=== PATIENT | female | born 1940 | race Caucasian/White ===

== ENCOUNTER 2016-03-07 18:14 | Emergency (ER) | payer MEDICARE, OTHER ==
[2016-03-07] MEDS ORDERED: NS 1,000 ML IV ONE (18:37)
--- NOTE | 2016-03-07 18:37 | EDPRACDOC ---
- General Information Chief Complaint: Flu-Like Symptoms Stated Complaint: COUGH/WEAKNESS Time Seen by Provider: 03/07/16 18:31 Home Medications: Home Medications Citalopram (anti-depressant) [Celexa] 40 mg PO .QPM 09/23/12 Enalapril Maleate [Vasotec] 10 mg PO .QPM 02/01/14 Azithromycin [Zithromax] 0 mg PO DAILY #6 tablet 03/07/16 Tussionex [Tussionex Oral Suspension] 5 ml PO BID PRN #120 ml 03/07/16 Warfarin Sodium [Coumadin] 6 mg PO .QPM 03/07/16 Allergies/Adverse Reactions: Allergies Allergy/AdvReac Type Severity Reaction Status Date / Time enoxaparin sodium Allergy Unknown Unknown/See Verified 03/07/16 18:43 [From Lovenox] Comments Heparin Analogues Allergy Unknown Unknown/See Verified 03/07/16 18:43 [Heparin Agents] Comments iodine [Iodine] Allergy Unknown Unknown/See Verified 03/07/16 18:43 Comments Iodinated Contrast Media - Allergy See Verified 03/07/16 18:43 IV Dye Comments - History of Present Illness Onset: THIS MORNING HPI: PT STATES SUDDEN ONSET OF CHILLS, NON-PROD COUGH, NAUSEA, "DRY HEAVES", HEADACHE , CHEST PAIN, STATES SHE FEELS LIKE SHE IS "IN A BARRELL", PT STATES SYMPTOMS BEGAN THIS MORNING, NO MEDS TAKEN FOR SAME. Shortness of Breath: Mild Relevant History of: Reports: None Cough: Reports: Non-productive Rhinorrhea: Reports: Clear Fever Severity/Quality: Reports: subjective Ear Symptoms: Reports: None Recently treated infections: Denies: Otitis media, Pneumonia, URI Associated Signs & Symptoms: Reports: Cough, Fever, Headache, Nasal Symptoms, Nausea, Diarrhea, Myalgia. Denies: Vomiting, Rash, Pain with head movement, AMS Oral Intake: Decreased Urinary Output: Normal ED Past Medical History - History Reviewed Yes Nurses notes reviewed and agree except as marked - Patient Medical History Cardiac History: Reports: Hypertension, Cardiac Catheterization, Hypercholesterolemia, Pacemaker (was removed in 2005) Respiratory History: Reports: Pulmonary Embolism. Denies: Pneumonia GI/ History: Reports: Diverticulosis. Denies: Urinary Tract Infection Musculoskeletal History: Reports: Arthritis Psychological History: Reports: Depression, Anxiety. Denies: Substance Use Disorder Systemic History: Reports: Anemia Surgical History: Reports: Cholecystectomy, Cardiac Catheterization, Hernia Surgery, Tonsillectomy/Adnoidectomy, Other (Gastric stapling, IVC filter placement) - Family Medical History Reports: Hypertension, Diabetes, Cancer (Mother), Stroke (Mother), Cardiac Disorders - Social Medical History Smoking Status: Never smoker Social History: Denies: Substance Use Disorder ETOH: None Substance Abuse: None EDM Review of Systems - Review of Systems Constitutional: Chills, Fever, Fatigue, Weakness Eyes: negative: Blurred Vision, Double Vision Ears: negative: Drainage Throat: negative: Pain Nose: Congestion, Discharge Respiratory: Cough, Shortness of Breath, Wheezing Cardiovascular: Chest Pain. negative: Palpitations Gastrointestinal: Diarrhea, Nausea. negative: Pain, Vomiting Genitourinary: negative: Dysuria, Frequency Neurological: Headache. negative: Dizziness, Numbness Musculoskeletal: No Symptoms Reported Integumentary: No Symptoms Reported - Physical Exam Constitutional: Alert (Awake), No apparent distress Oriented to: Time, Person, Place Last recorded Vital Signs: Oxygen Pulse Oxygen Saturation O2 Device Oxygen Flow Rate Fraction of Inspired Oxygen ( FIO2) - HEENT Head: Normal ( normocephalic) Eye Exam: Normal (PERRL, EOMI, Sclera white) Oropharynx: Normal (Pharynx:Moist without exudate,Gums-no swelling) Tympanic Membrane: Normal ENT EAC: Normal TMJ: Normal Nose: No Symptoms Reported (septum midline) Neck: Normal (FROM, trachea at midline) - Respiratory/Cardiovascular Respiratory: Normal - CTA (BBS clear to auscultation without adventitious sounds ) Cardiovascular: Normal (RRR without murmur, gallop or rub) - GI Auscultation: Normal (NABS) Palpation: Normal (Soft,No rebound or guarding, non distended) Tenderness: Non tender Lange's Sign: Negative - Musculoskeletal Back: Normal (Non-Tender) Extremities: Normal (Normal tone, Pulses 2+ No cyanosis or edema, FROM) - Integumentary Skin: Normal, Warm, Dry Lymphatics: Normal (no adenopathy) - Neurologic Memory Impaired: Normal Motor Function: Normal (Normal tone, Pulses 2+ No cyanosis or edema, FROM) Cranial Nerve: Normal (CN II-X11 intact sensation, strength 5/5) Cerebellar: Normal Mood Description: Normal Perception: Normal - Differential Diagnosis Bronchitis, Influenza A B, Pneumonia, Sinusitis, URI - Re-evaluation Re-evaluation 1 Re-evaluation Time: 20:50 (WAS FEELING BETTER, BUT NOW STARTING TO COUGH AGAIN) Re-evaluation 2 Re-evaluation Time: 21:37 (BETTER, AMBULATED TO BATHROOM WITHOUT DIFFICULTY) - Results 03/07/16 19:45 03/07/16 19:45 03/07/16 20:50 Laboratory Results - last 24 hr 03/07/16 03/07/16 03/07/16 19:45 19:45 19:45 WBC 7.9 RBC 4.23 Hgb 12.6 Hct 37.8 MCV 89 MCH 29.9 MCHC 33.5 RDW 14.6 H Plt Count 233 MPV 8.2 Neut % (Auto) 82.8 H Lymph % (Auto) 5.5 L [place] % (Auto) 10.6 H Eos % (Auto) 0.1 Baso % (Auto) 1.0 Absolute Neuts (auto) 6.48 Absolute Lymphs (auto) 0.40 L PT 16.1 H INR 1.6 APTT 21.7 L Sodium 136 L Potassium 4.6 Chloride 104 Carbon Dioxide 25 Anion Gap 12 BUN 14 Creatinine 0.90 Estimated GFR (MDRD) > 60 Glucose 99 Calculated Osmolality 263 L Calcium 8.5 Corrected Calcium 8.9 Total Bilirubin 0.5 AST 24 ALT 36 Alkaline Phosphatase 82 Troponin I < 0.01 [id number] Pept 731 Total Protein 7.0 Albumin 3.6 Lipase 65 - EKG EKG #1 EKG Time: 18:42 -: Yes EKG interpreted by me Rate: bpm: 69 [place]: Normal Rhythm: NSR Block: None Hypertrophy: None ST: Nonsp Comparison: 04/06/11 (NO CHANGE) - Diagnostic Imaging CXR Image interpreted by: Radiologist CHEST 2 VIEW COMPARISON: 02/01/2014 FINDINGS: Borderline heart size with normal pulmonary vascularity. No focal airspace disease or consolidation in the lungs. No blunting of costophrenic angles. No pneumothorax. Degenerative changes in the spine and shoulders. Surgical clips in the upper abdomen. IMPRESSION: No active cardiopulmonary disease. Decision Time to Discharge: 21:37 - Departure Disposition: Home Condition: Stable Final Diagnosis: Acute bronchitis Qualifiers: Bronchitis organism: unspecified organism Qualified Code(s): J20.9 - Acute bronchitis, unspecified Instructions: Acute Bronchitis (ED) Education/Counseling Given To: Patient Education/Counseling Given Regarding: Diagnosis, Treatment, Prognosis, Follow Up Referrals: Dane Nogueira MD [Primary Care Provider] - One Week Prescriptions: New Azithromycin [Zithromax] 0 mg PO DAILY #6 tablet Tussionex [Tussionex Oral Suspension] 5 ml PO BID PRN #120 ml PRN Reason: Cough No Action Citalopram (anti-depressant) [Celexa] 40 mg PO .QPM Enalapril Maleate [Vasotec] 10 mg PO .QPM Warfarin Sodium [Coumadin] 6 mg PO .QPM Additional Instructions: REST, DRINK PLENTY OF FLUIDS, USE TYLENOL OR MOTRIN NEEDED FOR PAIN OR FEVER , RETURN TO THE ED FOR ANY WORSENING SYMPTOMS OR CONCERNS.
[2016-03-07 18:43] VITALS: BMI 39.9
--- NOTE | 2016-03-07 19:03 | DIRPT ---
CLINICAL DATA: Shortness of breath. Sudden onset chills, cough, nausea, headache, chest pain. Symptoms began this morning. EXAM: CHEST 2 VIEW COMPARISON: 02/01/2014 FINDINGS: Borderline heart size with normal pulmonary vascularity. No focal airspace disease or consolidation in the lungs. No blunting of costophrenic angles. No pneumothorax. Degenerative changes in the spine and shoulders. Surgical clips in the upper abdomen. IMPRESSION: No active cardiopulmonary disease. Electronically Signed By: Merritt Kelly M.D. On: 03/07/2016 19:01
[2016-03-07] MEDS ORDERED: ACETAMINOPHEN 325 MG/TAB TABLET PO ONE (19:26)
[2016-03-07 19:51] LABS: AUTOMATED EOSINOPHIL 0.1 % (0-5); AUTOMATED LYMPH 5.5 % (17-44); AUTOMATED MONOCYTE 10.6 % (3-10); AUTOMATED NEUTROPHIL 82.8 % (45-76); MPV 8.2 fL (7.4-10.4)
[2016-03-07 20:03] LABS: BLOOD UREA NITROGEN 14 MG/DL (7-17); CALC CORRECTED 8.9 MG/DL (8.4-10.2); CALCIUM 8.5 MG/DL (8.4-10.2); CALCULATED OSMOLALITY 263 MOs/Kg (270-290); CHLORIDE 104 mEq/L (98-107); GLUCOSE 99 MG/DL (70-99); SODIUM LEVEL 136 mEq/L (137-146)
[2016-03-07 20:08] LABS: PARTIAL THROMB. TIME 21.7 SEC (22-35); PT-INR 1.6
[2016-03-07] MEDS ORDERED: TUSSIONEX 5 ML ORAL SYRINGE PO ONE (20:50)
[2016-03-07 21:56] VITALS: BP 140/66; TEMP 97.4
[2016-03-07 21:58] VITALS: PULSE 60
== END 2016-03-07 21:55 | disposition home or self-care (01) ==
LOC: ED 18:14
DX: J20.9 Acute bronchitis, unspecified (principal); I10 Essential (primary) hypertension; E78.00 Pure hypercholesterolemia, unspecified; Z79.01 Long term (current) use of anticoagulants; Z79.899 Other long term (current) drug therapy; R06.02 Shortness of breath
CPT/HCPCS: 36415; 71020; 80053; 83690; 83880; 84484; 85025; 85610; 85730; 87040; 87804; 93005; 96360; 99284; A9270; J3490